=== PATIENT | female | born 1960 | race Caucasian/White ===

== ENCOUNTER 2021-05-01 09:22 | Emergency (ER) | payer BC, SELFPAY ==
[2021-05-01 09:23] VITALS: BP 125/65; PULSE 89; RESP 18; TEMP 37.2; O2SAT 97; BMI 54.4
--- NOTE | 2021-05-01 09:56 | EDS_ITS ---
HPI History of Present Illness Chief Complaint: Cold Sx Informant: patient Narrative Narrative: Patient presents requesting referral for monoclonal therapy. She was exposed to a son-in-law and then her daughter tested positive for Covid. About 5 days later she started with symptoms. Her symptoms started on Tuesday evening April 2021. She has had mostly fevers and malaise. She has had a bit of a cough but no productivity. She is not actually short of breath. No chest pain. No palpitations. She had some nausea but no vomiting. She also had some mild diarrhea. Those 2 symptoms are gone. She is eating fine now. [facility] Home Medications NK 05/01/21 [History Last Taken Unknown] Allergy/AdvReac Type Severity Reaction Status Date / Time No Known Allergies Allergy Verified 05/01/21 09:22 Social History Smoking Status: Never smoker ROS ROS ED Constitutional Constitutional ED: Reports fever(s); Denies weight loss Eyes Eyes: Denies blurry vision or change in vision ENT ENT ED: Reports rhinorrhea; Denies sore throat Cardiovascular Cardiovascular: Denies chest pain or palpitations Respiratory/Chest Respiratory/Chest: Reports cough; Denies dyspnea, dyspnea on exertion or sputum Gastrointestinal Gastrointestinal: Reports diarrhea and nausea; Denies abdominal pain or vomiting Genitourinary Genitourinary ED: Denies dysuria Musculoskeletal Musculoskeletal: Reports myalgias Integumentary Denies rash Neurologic Neurologic: Denies headache(s), paresthesias or weakness Endocrine Endocrinology: Denies polydipsia or polyuria Allergic/Immunologic Allergic/Immunologic ED: Denies urticaria EXAM Physical Exam Const Vital Signs: 05/01/21 09:23 05/01/21 10:12 Temperature 99.0 F Temperature Source Oral Pulse Rate 89 Respiratory Rate 18 Respiratory Effort Normal Non-Labored Respiratory Pattern Normal Blood Pressure 125/65 H Blood Pressure Mean 85 Pulse Ox 97 Oxygen Delivery Method Room Air Positive well nourished, well developed and obese General Appearance ED: well developed Nutritional Appearance: obese HEENT Reports moist mucous membranes Eyes General Eye ED: Negative for pale conjunctiva or scleral icterus Neck no JVD Chest Wall inspection of chest normal Resp normal respiratory effort and clear to auscultation bilaterally Effort and Inspection: Negative for pain with movement Auscultation: Negative for rales, rhonchi or wheezes Cardio regular rate, regular rhythm and no murmurs GI normal to inspection, nondistended, normoactive bowel sounds and non-tender Palpation: soft Back/Spine no CVA tenderness Neuro oriented x3 Sensorium / Orientation: alert Psych mental status grossly normal Skin no rashes or lesions noted and no wounds MDM MDM MDM Narrative Medical decision making narrative: Patient's Covid is positive. This is consistent with her history, exposure, and home test. I will refer her for monoclonal therapy. Lab Data Attestation: I reviewed the patient's lab results. Discharge Plan Triage Chief Complaint: Cold Sx ED Provider: Reginald Medeiros Dx/Rx/DC Orders Clinical Impression: COVID-19 Instructions: Caring for Someone Who Has COVID-19 Prescriptions: No Action NK RF: 0 Other Ambulatory Orders: COVID Outpatient Monoclonal Antibody Referral (Routine) Timeframe: 1 Day Facility: [facility] - Location: [facility] [place] Ordered By: Dr. Reginald Medeiros Primary Care Provider: Care Physician,No Primary Referrals: Care Physician,No Primary [Primary Care Provider] - Activity Restrictions/Additional Instructions: Follow-up with your private physician as needed. Follow-up with monoclonal therapy center. Disposition Disposition: Home, Self Care
[2021-05-01 10:58] VITALS: BP 127/84; PULSE 72; RESP 18; O2SAT 96
== END 2021-05-01 10:58 | disposition home or self-care (01) ==
PROVIDERS: Emergency Provider Emergency Medicine
DX: U07.1 COVID-19 (principal); E66.9 Obesity, unspecified
CPT/HCPCS: 87426; 99282; Q0245

== ENCOUNTER 2021-05-02 14:24 | Outpatient (CLI) | payer BC, SELFPAY ==
[2021-05-02 14:50] VITALS: BP 126/76; PULSE 118; RESP 24; TEMP 36.8; O2SAT 98; BMI 54.3
[2021-05-02] MEDS: 0.9% Saline Lock 10 ML Syringe IV (15:17)
[2021-05-02 15:49] VITALS: BP 117/94; PULSE 120; RESP 24; TEMP 36.7; O2SAT 98
[2021-05-02 16:43] VITALS: BP 139/95; PULSE 121; RESP 24; TEMP 37.7; O2SAT 95
== END 2021-05-02 16:49 | disposition home or self-care (01) ==
LOC: MS3OUT 14:27 → MS3 14:28
PROVIDERS: Referring Provider Nurse Practitioner Acute Care; Visit Provider Nurse Practitioner Acute Care
DX: Z23 Encounter for immunization (principal); U07.1 COVID-19
CPT/HCPCS: J7050; M0245; Q0245; A4216